=== PATIENT | male | born 2000 | race African-American/Black ===

== ENCOUNTER 2023-10-21 11:05 | Outpatient (REF) | payer OTHER, BC, SELFPAY ==
--- NOTE | ~2023-10-21 | XR_ITS ---
EXAMINATION: XR BILATERAL KNEES CLINICAL INFORMATION: Pain in unspecified knee. COMPARISON: None available. TECHNIQUE: AP upright view of both knees. Additional lateral and patellar view of the left knee. FINDINGS: LEFT KNEE: Postsurgical changes related to ACL surgery. Marginal osteophytes about the medial compartment without joint space narrowing and indictative of mild osteoarthritis. Lateral compartment and patellofemoral compartment are unremarkable. RIGHT KNEE LIMITED AP UPRIGHT: The medial and lateral compartments are normal. Cannot assess patellofemoral compartment. Surrounding bone and soft tissue is normal. XR/XR knee LT 3V IMPRESSION: LEFT KNEE: Mild osteoarthritis. Postsurgical changes. RIGHT KNEE LIMITED: Unremarkable. Electronically signed by: Montez Ortega MD 11/14/2023 08:34 PM EDT
== END 2023-10-21 11:06 | disposition home or self-care (01) ==
LOC: HO.HOSX 11:05
PROVIDERS: Visit Provider Physician Assistant
DX: M25.562 Pain in left knee (principal)
CPT/HCPCS: 73562

== ENCOUNTER 2023-10-22 08:59 | Outpatient (AMB) | payer BC, SELFPAY ==
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
[2023-10-22 09:15] VITALS: BMI 26.8
== END 2023-10-22 09:50 | disposition home or self-care (01) ==
PROVIDERS: Visit Provider Physician Assistant
DX: M17.32 Unilateral post-traumatic osteoarthritis, left knee (principal); V49.50XA Passenger injured in collision with unspecified motor vehicles in traffic accident, initial encounter; Z04.3 Encounter for examination and observation following other accident
CPT/HCPCS: 99203

== ENCOUNTER → 2023-10-22 08:59 | Outpatient (BNVA) | payer OTHER, SELFPAY | PROVIDERS: Visit Provider Physician Assistant | DX: M25.569 Pain in unspecified knee (principal) ==